=== PATIENT | female | born 1985 | race Hispanic/Latino ===

== ENCOUNTER 2018-06-01 18:56 | Emergency (ER) | payer MEDICAID, OTHER | END 2018-06-01 21:09 | disposition home or self-care (01) | LOC: EDH 18:56 | DX: S92.351A Displaced fracture of fifth metatarsal bone, right foot, initial encounter for closed fracture (principal); X58.XXXA Exposure to other specified factors, initial encounter; Y93.89 Activity, other specified; Y92.89 Other specified places as the place of occurrence of the external cause; Y99.8 Other external cause status | CPT/HCPCS: 73630 ==